=== PATIENT | female | born 1965 | race Two or more races ===

== ENCOUNTER 2021-04-15 14:21 | Outpatient (CLI) | payer OTHER, SELFPAY ==
[2021-04-20 16:54] LABS: HPV APTIMA, High Risk Negative (Negative)
== END 2021-04-15 23:59 | disposition home or self-care (01) ==
PROVIDERS: Visit Provider Obstetrics & Gynecology
DX: Z12.4 Encounter for screening for malignant neoplasm of cervix (principal)
CPT/HCPCS: 87624; 88175; G0145